=== PATIENT | male | born 1950 | race Caucasian/White ===

== ENCOUNTER 2018-12-07 19:22 | Inpatient (IN) | payer MEDICARE, OTHER ==
[~2018-12-07] VITALS: Ht 182.9 cm; Wt 120.7 kg
[2018-12-07] MEDS ORDERED: LIPITOR20 MG PO (19:27)
[2018-12-07] MEDS ORDERED: CENTRUM COMPLE1 EACH PO (19:27)
[2018-12-07] MEDS ORDERED: ZYLOPRIM300 MG PO (19:27)
[2018-12-07] MEDS ORDERED: COZAAR50 MG PO (19:28)
[2018-12-07] MEDS ORDERED: FUROSEMIDE40 MG PO (19:28)
[2018-12-07] MEDS ORDERED: K-TAB10 MEQ PO (19:28)
[2018-12-07] MEDS ORDERED: BAYER CHEWABLE81 MG PO (19:28)
[2018-12-07] MEDS ORDERED: NEO-BACIT-POLY3.5 G1 EACH EYE (19:29)
[2018-12-07] MEDS ORDERED: CLARITIN 10 MG10 MG PO (19:29)
[2018-12-07] MEDS ORDERED: FLUTICASONE PRO16 GM NASAL (19:29)
[2018-12-07 20:29] LABS: ALBUMIN 3.4 g/dL (3.4-5.0); ALKALINE PHOSPHATASE 291 U/L (46-116); ALT (SGPT) 189 U/L (10-68); BILIRUBIN - TOTAL 6.13 mg/dL (0.2-1.3); CALC OSMOLALITY 282 mosm/kg (275-300); CALCIUM 8.9 mg/dL (8.5-10.1); CARBON DIOXIDE 24.6 mmol/L (21.0-32.0); CHLORIDE - SERUM 98 mmol/L (98-107); CREATININE - SERUM 2.2 mg/dL (0.6-1.3); GLUCOSE 208 mg/dL (74-106); POTASSIUM - SERUM 3.8 mmol/L (3.5-5.1); PROTEIN - SERUM 6.3 g/dL (6.4-8.2); SODIUM 135 mmol/L (136-145); UREA NITROGEN 32 mg/dL (7-18); eGFR NON AFRICAN AMERICAN 32 mL/min (90-120)
[2018-12-07 20:39] VITALS: BP 112/52
[2018-12-07 20:41] LABS: AMYLASE - SERUM 25 U/L (25-115); CKMB 0.2 U/L (0.0-3.6); CREATINE KINASE 154 UL (21-232); LIPASE 114 U/L (73-393); TROPONIN-I 0.045 ng/mL (0.000-0.060)
[2018-12-07 21:03] LABS: APTT 32.5 SECONDS (22.8-39.4); INR 1.22 (0.85-1.17); PROTIME 14.9 SECONDS (11.6-15.0)
[2018-12-07 21:04] LABS: BASOPHILS 0 % (0-2); EOSINOPHILS 0 % (0-7); HEMATOCRIT 41.9 % (42.0-54.0); HEMOGLOBIN 13.6 g/dL (13.5-17.5); IMMATURE GRANULOCYTES 0.9 % (0-5); LYMPHOCYTES 9.5 % (15-50); MCH 28.8 pg (26.0-34.0); MCHC 32.5 g/dL (31.0-37.0); MCV 88.8 fL (80.0-100.0); MEAN PLATELET VOLUME 10.2 fL (7.4-10.4); NEUTROPHILS 78.6 % (40-80); PLATELET COUNT 91 10x3/uL (130-400); RBC 4.72 10x6/uL (4.20-6.10); RDW 16.5 % (11.5-14.5); WBC 3.3 10x3/uL (4.8-10.8)
[2018-12-07 21:11] LABS: D-DIMER-QUANTITATIVE 8.27 ug/mLFEU (0.20-0.54)
[2018-12-07 21:16] LABS: PLATELET ESTIMATE DECREASED
--- NOTE | 2018-12-07 21:38 | NUR ---
PT LEFT ED VIA STRETCHER FOR CT.
--- NOTE | 2018-12-07 21:47 | NUR ---
PT RETURNED FROM CT VIA STRETCHER.
--- NOTE | 2018-12-07 22:30 | NUR ---
PT SLEEPING ON BED. PT FAMILY AT BEDSIDE.
[2018-12-07 22:50] VITALS: BP 130/73
--- NOTE | 2018-12-07 23:26 | NUR ---
URINE SPECIMEN SENT TO LAB
[2018-12-07 23:44] LABS: APPEARANCE HAZY (CLEAR); BILIRUBIN 2+ (NEGATIVE); COLOR DK YELLOW (YELLOW); GLUCOSE NEGATIVE (NEGATIVE); KETONE NEGATIVE (NEGATIVE); NITRITE NEGATIVE (NEGATIVE); PROTEIN 1+ mg/dL (NEGATIVE); SPECIFIC GRAVITY 1.015 (1.005-1.020)
[2018-12-07 23:46] LABS: EPITHELIAL CELLS 0-5 /hpf (0-5); RED CELLS - URINE 0-5 /hpf (0-5); WHITE CELLS - URINE 0-5 /hpf (NEGATIVE)
[2018-12-07 23:47] LABS: AMORPHOUS SEDIMENT <1+ /lpf (NONE SEEN); BACTERIA FEW /hpf (NEGATIVE)
[2018-12-08] VITALS (22 sets, daily range): BP systolic 84–124; BP diastolic 49–60; Ht 182.9 cm; Wt 120.7 kg
--- NOTE | 2018-12-08 00:20 | NUR ---
PT RECIEVED FROM ER, REPORT RECIEVED. PT AAOX4, HARD OF HEARING. TEMP 102.8 ORALLY, PT ON 7L O2 VIA NC, 20G PIV IN LEFT AC. WILL CONTINUE TO MONITOR.
--- NOTE | 2018-12-08 00:50 | NUR ---
ER SPOKE WITH PYSICIANS REGARDING CONSULTS.
--- NOTE | 2018-12-08 01:32 | NUR ---
PT TEMP 102.7 ORALLY, ICE PACKS PLACED AXILLARY AND ON GROIN.
--- NOTE | 2018-12-08 03:24 | NUR ---
PT'S BP DROPPING TO MID 80'S SYSTOLIC, ANDREY SMITH PAGED, UPDATED ON STATUS, NEW ORDERS RECIEVED.
[2018-12-08 04:28] LABS: BASOPHILS 0.1 % (0-2); EOSINOPHILS 0 % (0-7); HEMATOCRIT 35.5 % (42.0-54.0); HEMOGLOBIN 11.4 g/dL (13.5-17.5); IMMATURE GRANULOCYTES 1.3 % (0-5); LYMPHOCYTES 5.4 % (15-50); MCH 28.6 pg (26.0-34.0); MCHC 32.1 g/dL (31.0-37.0); MCV 89.2 fL (80.0-100.0); MEAN PLATELET VOLUME 10.8 fL (7.4-10.4); MONOCYTES 12.4 % (2-11); NEUTROPHILS 80.8 % (40-80); PLATELET COUNT 73 10x3/uL (130-400); RBC 3.98 10x6/uL (4.20-6.10); RDW 16.7 % (11.5-14.5)
[2018-12-08 04:41] LABS: WBC 10.3 10x3/uL (4.8-10.8)
--- NOTE | 2018-12-08 05:00 | NUR ---
PIV INITIATED IN LEFT HAND. PT AAOX4, TEMP DOWN TO 98.6, DENIES PAIN, N&V. WILL CONTINUE TO MONITOR.
[2018-12-08 05:04] LABS: ALBUMIN 2.6 g/dL (3.4-5.0); ANION GAP 17.1 mmol/L (8-16); BILIRUBIN - TOTAL 6.47 mg/dL (0.2-1.3); CALCIUM 8.3 mg/dL (8.5-10.1); CARBON DIOXIDE 22.7 mmol/L (21.0-32.0); MAGNESIUM - SERUM 1.4 mg/dL (1.8-2.4); PHOSPHOROUS 2.6 mg/dL (2.5-4.9); POTASSIUM - SERUM 3.8 mmol/L (3.5-5.1); PROTEIN - SERUM 5.5 g/dL (6.4-8.2)
[2018-12-08 05:12] LABS: CREATININE - SERUM 2.8 mg/dL (0.6-1.3)
[2018-12-08 05:13] LABS: TROPONIN-I 0.275 ng/mL (0.000-0.060)
--- NOTE | 2018-12-08 05:56 | NUR ---
PAGED ANDREY ZARATE APN REGARDING TROPONIN OF 0.275, UPDATED ON STATUS, NEW ORDERS RECIEVED.
--- NOTE | 2018-12-08 07:15 | NUR ---
REPORT RECEVIED. ASSESSMENT COMPLETE PER FLOW SHEET. VSS. NO NEW CHANGE PT DENIES NEEDS WILL CONTINUE TO MONITOR
--- NOTE | 2018-12-08 07:30 | NUR ---
PT TO MRI AT THIS TIME. VSS.
--- NOTE | 2018-12-08 09:20 | NUR ---
FAMILY AT BEDSIDE, UPDATE GIVEN, WILL CON'T TO MONITOR
--- NOTE | 2018-12-08 11:15 | NUR ---
REASSESSMENT COMPLETE, NO CHANGES NOTED, WILL CON'T TO MONITOR
[2018-12-08 12:16] LABS: CKMB 1.8 U/L (0.0-3.6); CREATINE KINASE 734 UL (21-232); TROPONIN-I 0.116 ng/mL (0.000-0.060)
--- NOTE | 2018-12-08 13:15 | NUR ---
PT RESTING COMFORTABLY AT THIS TIME, NO NEEDS NOTED, VSS, CALL LIGHT IN REACH
--- NOTE | 2018-12-08 15:12 | NUR ---
KIDNEY US IN PROGRESS AT THIS TIME, PT TOLERATING WELL
--- NOTE | 2018-12-08 18:59 | MORECARE ---
CASE MANAGEMENT DISCHARGE SUMMARY PATIENT: ROSA ELENA CALIX UNIT: [id number] ADM DATE: 12/07/18 AGE: 68 : 51 SEX: M ROOM/BED: D.2307 AUTHOR: AYANNA MERLOS PHYSICIAN: REFERRING PHYSICIAN: NNEKA CORTEZ MD DATE OF SERVICE: 12/08/18 Discharge Plan Patient Name: ROSA ELENA CALIX Facility: [facility]:[place] : 1950 Planned Disposition: Home Anticipated Discharge Date: Discharge Date: Expected LOS: Initial Reviewer: [email or web address] Initial Review Date: 12/08/2018 Generated: 12/08/18 7:58 pm Comments DCP- Discharge Planning Updated by [email or web address]: Jenny Kemp on 12/08/18 5:[address] Patient Name: ROSA ELENA CALIX Admission Status: ER Accout number: [id number] Admission Date: 12-07-2018 : 1950 Admission Diagnosis: Attending: NNEKA CORTEZ Current LOS: 1 Anticipated DC Date: Planned Disposition: Home Primary Insurance: MEDICARE A & B Discharge Planning Comments: CM met with patient at bedside after explaining CM role and obtaining verbal consent. Patient lives at home with his Gayatri where he is independent with his care and plans to return there upon discharge. Patient feels this would be a safe discharge. CM discussed availability / needs of home health and medical equipment. Patient denies any discharge needs at this time. Patient states he will have his family drive him home upon discharge. CM will continue to follow and assist as needed with discharge planning / needs. Multifold Operator: Jenny Kemp DCPIA - Discharge Planning Initial Assessment Updated by [id number]: Jenny Kemp on 12/08/18 6:54 pm * Is the patient Alert and Oriented? Yes * How many steps to enter\exit or inside your home? * PCP RICHTER * Pharmacy [facility] * Preadmission Environment Home with Family * ADLs Independent * Equipment None * List name and contact numbers for known caregivers / representatives who currently or will assist patient after discharge: GAYATRI CALIX - - [phone] * Verbal permission to speak to the caregivers and representatives has been obtained from the patient. N/A * Community resources currently utilized None * Additional services required to return to the preadmission environment? No * Can the patient safely return to the preadmission environment? Yes * Has this patient been hospitalized within the prior 30 days at any hospital? No Patient Name: ROSA ELENA CALIX Page 33099 at 1859 All edits/amendments must be made on the electronic document DICTATION DATE: 12/08/181857 IC ENGINEER: KELI 12/08/181857 RPT#: [id number] DC DATE: STATUS: ADM IN [facility] [address] [place] [address] END OF REPORT
--- NOTE | 2018-12-08 19:00 | NUR ---
REPORT RECEIVED AT BEDSIDE, INITIAL SHIFT ASSESSMENT COMPLETE PER FLOW SHEET, PT AAOx4 DENIES PAIN OR NEEDS AT THIS TIME, LEFT HAND 20g PIV PATENT C/D/I, LEFT AC 20g PIV SL, NSR ON CM OTHER VSS, WILL CONTINUE TO MONITOR
--- NOTE | 2018-12-08 20:00 | NUR ---
PT ASSISTED TO BEDSIDE COMMODE WITH MINIMAL ASSIST, SEMISOLID BM NOTED, PT ASSISTED BACK IN BED FOR COMFORT, BED ALARM ON AND FUNCTIONING, CALL LIGHT IN REACH, WILL CONTINUE TO MONITOR
--- NOTE | 2018-12-08 21:00 | NUR ---
MEDS GIVEN PER MAR/ORDERS, PT TOLLERATED WELL, NO S/S OF ACUTE DISTRESS, AT BEDSIDE, VSS, WILL CONTINUE TO MONITOR
[2018-12-09] VITALS (19 sets, daily range): BP systolic 94–151; BP diastolic 58–75
--- NOTE | 2018-12-09 | NUR ---
ASSISTED PT TO BEDSIDE COMMODE, SMALL SEMIFORMED BM NOTED, PT REPOSITIONED BACK IN BED FOR COMFORT, LINES REPOSITIONED, HOB ELEVATED, VSS, WILL CONTINUE TO MONITOR
[2018-12-09 04:10] LABS: BASOPHILS 0.1 % (0-2); EOSINOPHILS 0 % (0-7); HEMATOCRIT 34.3 % (42.0-54.0); HEMOGLOBIN 11.2 g/dL (13.5-17.5); IMMATURE GRANULOCYTES 0.4 % (0-5); LYMPHOCYTES 5.6 % (15-50); MCH 28.7 pg (26.0-34.0); MCHC 32.7 g/dL (31.0-37.0); MCV 87.9 fL (80.0-100.0); MEAN PLATELET VOLUME 11.6 fL (7.4-10.4); MONOCYTES 14.4 % (2-11); NEUTROPHILS 79.5 % (40-80); PLATELET COUNT 73 10x3/uL (130-400); RDW 17.2 % (11.5-14.5); WBC 9.7 10x3/uL (4.8-10.8)
[2018-12-09 04:13] LABS: ANION GAP 16.6 mmol/L (8-16); CALCIUM 8.2 mg/dL (8.5-10.1); CARBON DIOXIDE 22.4 mmol/L (21.0-32.0); MAGNESIUM - SERUM 1.7 mg/dL (1.8-2.4); PHOSPHOROUS 2.2 mg/dL (2.5-4.9)
[2018-12-09 04:40] LABS: PLATELET ESTIMATE DECREASED
--- NOTE | 2018-12-09 05:30 | NUR ---
ALL NEEDED CONSENTS SIGNED BY PT AND IN CHART, AT BEDSIDE AT TIME CONSENTS SIGNED, NO QUESTIONS OR CONCERNS NOTED AT THIS TIME
--- NOTE | 2018-12-09 06:00 | NUR ---
CHG BATH WITH COMPLETE LINEN AND GOWN CHANGE, PT ASSISTED WITH BATH, MALIN CATH CARE COMPLETED, MALIN CATH STAT-LOCK REPLACED AND REPOSITIONED, NO ACUTE S/S OF DISTRESS NOTED, VSS, WILL CONTINUE TO MONITOR
--- NOTE | 2018-12-09 07:15 | NUR ---
REPORT RECEIVED. ASSESSMENT COMPLETE PER FLOW SHEET. VSS. PT RESTING COMFORTABLY WILL CONTINUE TO MONITOR
[2018-12-09 08:41] LABS: BILIRUBIN - TOTAL 5.03 mg/dL (0.2-1.3)
--- NOTE | 2018-12-09 10:50 | NUR ---
REASSESSMENT COMPLETE PER FLOW SHEET. VSS. OR AT BEDSIDE PT LEFT VIA BED.
--- NOTE | 2018-12-09 14:10 | NUR ---
PT BACK FROM OR AT THIS TIME. FAMILY NOTIFIED AT BEDSIDE. DR LEZAMA AT BEDSIDE. NEW ORDERS RECIEVED. ADM. PT RESTING COMFORTABLY WILL CONTINUE TO MONITOR VSS
--- NOTE | 2018-12-09 15:00 | NUR ---
REASSESSMENT COMPLETE PER FLOW SHEET. VSS. NO NEW CHANGES PT RESTING COMFORTABLY WILL CONTINUE TO MONITOR
--- NOTE | 2018-12-09 19:00 | NUR ---
REPORT RECEIVED AT BEDSIDE, SHIFT ASSESSMENT COMPLETE SEE FLOW SHEET FOR FURTHER, PT AAOx4 DENIES PAIN OR NEEDS AT THIS TIME, REPOSITIONES SELF WITHOUT ASSIST, ABDOMENAL INCISION x4 C/D/I, MALIN CATH TO GRAVITY SECURED TO LEFT UPPER THIGH WITH STAT-LOCK, LEFT HAND 20g PIV PATENT C/D/I, LEFT AC 20g PIV SL, HOB ELEVATED, VSS, NSR ON CM, WILL CONTINUE TO MONITOR
--- NOTE | 2018-12-09 21:00 | NUR ---
MEDS GIVEN PER MAR/ORDERS, PT AWAKE AND ALERT, DENIES PAIN, AND SON AT BEDSIDE, VSS
--- NOTE | 2018-12-09 23:00 | NUR ---
REASSESSMENT COMPLETE SEE FLOW SHEET, NO ACUTE CHANGES SINCE PRIOR ASSESSMENT, REPOSITIONED FOR COMFORT, VSS, NSR ON CM, PT DENIES PAIN OR NEEDS AT THIS TIME, WILL CONTINUE TO MONITOR
[2018-12-10] VITALS (9 sets, daily range): BP systolic 111–148; BP diastolic 67–83
--- NOTE | 2018-12-10 03:00 | NUR ---
REASSESSMENT COMPLETE SEE FLOW SHEET, PT AWAKE AND ALERT, DENIES PAIN OR NEEDS AT THIS TIME, REPOSITIONES SELF FREQUENTLY, VSS, NSR ON CM, WILL CONTINUE TO MONITOR
--- NOTE | 2018-12-10 04:30 | NUR ---
FiO2% INCREASED TO 60% BY NAZIA RT D/T ABG RESULTS
[2018-12-10 04:40] LABS: BASOPHILS 0.3 % (0-2); EOSINOPHILS 0.1 % (0-7); HEMATOCRIT 33.7 % (42.0-54.0); HEMOGLOBIN 10.8 g/dL (13.5-17.5); IMMATURE GRANULOCYTES 1.7 % (0-5); LYMPHOCYTES 4.8 % (15-50); MONOCYTES 8.3 % (2-11); NEUTROPHILS 84.8 % (40-80); RBC 3.72 10x6/uL (4.20-6.10); RDW 17.6 % (11.5-14.5); WBC 8.6 10x3/uL (4.8-10.8)
[2018-12-10 05:00] LABS: ALBUMIN 2.3 g/dL (3.4-5.0); ANION GAP 12.3 mmol/L (8-16); BILIRUBIN - DIRECT 1.58 mg/dL (0.00-0.30); BILIRUBIN - INDIRECT 0.93 mg/dL (0.00-1.00); BILIRUBIN - TOTAL 2.51 mg/dL (0.2-1.3); CALCIUM 7.7 mg/dL (8.5-10.1); CARBON DIOXIDE 24.7 mmol/L (21.0-32.0); PHOSPHOROUS 2.5 mg/dL (2.5-4.9); PROTEIN - SERUM 5.4 g/dL (6.4-8.2)
[2018-12-10 05:04] LABS: CREATININE - SERUM 1.4 mg/dL (0.6-1.3); MAGNESIUM - SERUM 2.5 mg/dL (1.8-2.4)
[2018-12-10 05:16] LABS: MCV 90.6 fL (80.0-100.0); PLATELET COUNT 122 10x3/uL (130-400)
--- NOTE | 2018-12-10 07:15 | NUR ---
REPORT RECEIVED. ASSESSMENT COMPLETE PER FLOW SHEET. VSS. PT ERSTING COMFORTABLY WILL CONTINUET OMONITOR
--- NOTE | 2018-12-10 09:20 | NUR ---
DR LEZAMA AT BEDSIDE. GIVEN UDPATE. NEW ORDERS RECEIVED. MALIN D.C.'D BALLOON INTACT, PT AMBULATED TWO LAPS AROUND UNIT. VSS WILL CONTINUE TO MONITOR
--- NOTE | 2018-12-10 10:23 | NUR ---
REPORT CALLED TO [facility] FOR ROOM 2229. PT MOVED VIA WHEELCHAIR
--- NOTE | 2018-12-10 10:42 | NUR ---
RECEIVED TO ROOM 2229 VIA WC FROM ICU. A/O X3. FAMILY AT BEDSIDE. SKIN INTACT WITHOUT REDNESS EXCEPT 4 INSERTION SITES TO ABDOMEN WHICH ARE CLEARN DRY AND WELL APPROXIMATED.
--- NOTE | 2018-12-10 13:30 | EC ---
PATIENT:ROSA ELENA CALIX DATE OF SERVICE: 12/07/18 SEX: M MEDICAL RECORD: [id number] DATE OF : [birth year] LOCATION:D.MS [address] AGE OF PATIENT: 68 ADMISSION DATE: 12/07/18 REFERRING PHYSICIAN: INTERPRETING PHYSICIAN: KAREN FERNANDEZ MD ECHOCARDIOGRAM REPORT ECHO CHARGES 4 ECHO COMPLETE Date: 12/08/18 CLINICAL DIAGNOSIS: SEPSIS, H/O:CHF, HYPOTENSION, TACHYCARDIA ECHOCARDIOGRAPHIC MEASUREMENTS (adult normal given) AC root (d.<3.7cm) 3.3 cm LV Septum d (<1.2 cm> 0.9 cm Valve Excursion 1.9 cm LV Septum (systole) 1.2 cm Left Atria (s.<4.0cm> 3.3 cm LVPW d(<1.2cm) 0.9 cm RV (d.<2.3cm) 3.1 cm LVPW (sytole) 1.2 cm LV diastole(<5.6CM) 6.3 cm MV E-F(>70mm/sec) cm LV systole 5.1 cm LVOT Diameter 1.9 cm MV exc.(>10mm) cm Est.ejection fraction (50-75%) % DOPPLER: LVIT cm/sec A 83 cm/sec E 89 cm/sec LA cm/sec RVSP 31.4 mmHg LVOT 82 cm/sec AOP1/2T m/s Asc. Ao 121 cm/sec RVOT 74 cm/sec RA cm/sec PA 87 cm/sec AV Gradient Peak 5.9 mmHg AV Mean 3.6 mmHg AV Area 1.7 cm MV Gradient Peak 3.6 mmHg MV Mean 1.7 mmHg MV Area cm COMMENTS: Delivery Mgr: Alida VILLEGAS Vegetable Inspector: 2 Dr. Hook TAPE# PACS Pericardial Effusion N DATE OF SERVICE: PROCEDURE: Echocardiogram FINDINGS: 1. Left ventricular chamber size is mildly dilated. Left ventricular systolic function is preserved at 50% to 55%. 2. Left atrium is within normal limits. Right atrium and right ventricular chamber sizes are mildly dilated. 3. Valvular structures have normal structure and motion. ECHOCARDIOGRAM REPORT [id number] ROSA ELENA CALIX 4. Doppler interrogation reveals mild mitral regurgitation, mild tricuspid regurgitation, no other valvular insufficiency or stenosis. Pulmonary systolic pressure is estimated at 31 mmHg. 5. No evidence of pericardial effusion or left ventricular thrombus. TRANSINT:[id number] Voice Confirmation ID: [id number] DOCUMENT ID: [id number] KAREN FERNANDEZ MD at 1330 CC: [id number] DICTATION DATE: 12/08/18 1214 STORM DOOR MAKER: 12/08/18 1356 ADM IN [facility] [address] [place] [address]
--- NOTE | 2018-12-10 14:29 | NUR ---
NUTRITION F/U PT TRANSFERED TO FLOOR. REGULAR DIET STARTED AT LUNCH TODAY. WILL HONOR FOOD PREFERENCES, MONITOR PO INTAKE. RD FOLLOWING
--- NOTE | 2018-12-10 15:30 | NUR ---
AMBULATED IN HALLWAY WITH 250 FEET WITHOUT DIFFICULTY. DENIES NEEDS.
--- NOTE | 2018-12-10 16:45 | NUR ---
RESTING QUIETLY IN BED. O2 WAS OFF. SATS DOWN TO 88%. O2 REPLACED AND SATS UP TO 95%. AT BEDSIDE. DENIES NEEDS.
--- NOTE | 2018-12-10 18:46 | NUR ---
ATE ABOUT 30% OF MEAL. REPORTED HE DOESN'T EAT BEEF OR PORK. WILL MONITOR. NO CHANGES NOTED. DENIES NEEDS. FAMILY AT BEDSIDE.
--- NOTE | 2018-12-10 19:34 | NUR ---
UP IN BED WITH FAMILY AT BEDSIDE. ABLE TO VOICE NEEDS. IV TO LEFT HAND INFUSING PER ORDERS, 02 AT 2.5 LITERS VIA NC ON, SHOWS NO S/S OF ANY ACUTE DISTRESS. WILL NOTE ANY CHANGE.
--- NOTE | 2018-12-11 02:34 | NUR ---
I have reviewed this patient and I concur with the Shift Assessment completed by the Licensed Practical Nurse today this shift.
[2018-12-11 05:28] LABS: BASOPHILS 0 % (0-2); EOSINOPHILS 0 % (0-7); IMMATURE GRANULOCYTES 0.6 % (0-5); LYMPHOCYTES 11.6 % (15-50); MCH 28.4 pg (26.0-34.0); MCHC 31.3 g/dL (31.0-37.0); MCV 90.9 fL (80.0-100.0); MEAN PLATELET VOLUME 11.1 fL (7.4-10.4); MONOCYTES 10.7 % (2-11); NEUTROPHILS 77.1 % (40-80); PLATELET COUNT 109 10x3/uL (130-400); RBC 3.52 10x6/uL (4.20-6.10); RDW 17.5 % (11.5-14.5)
[2018-12-11 05:29] VITALS: BP 132/75
[2018-12-11 05:41] LABS: WBC 6.2 10x3/uL (4.8-10.8)
[2018-12-11 05:45] LABS: ALBUMIN 2.3 g/dL (3.4-5.0); ANION GAP 10.9 mmol/L (8-16); BILIRUBIN - DIRECT 1.07 mg/dL (0.00-0.30); BILIRUBIN - INDIRECT 0.64 mg/dL (0.00-1.00); BILIRUBIN - TOTAL 1.71 mg/dL (0.2-1.3); CARBON DIOXIDE 26.5 mmol/L (21.0-32.0); CREATININE - SERUM 1.3 mg/dL (0.6-1.3); MAGNESIUM - SERUM 2.1 mg/dL (1.8-2.4); PHOSPHOROUS 2.3 mg/dL (2.5-4.9); POTASSIUM - SERUM 4.4 mmol/L (3.5-5.1); PROTEIN - SERUM 5.3 g/dL (6.4-8.2)
--- NOTE | 2018-12-11 06:33 | NUR ---
RESTED FAIR THIS SHIFT, HAD SOME TIMES OF SOB UPON EXERTION, WHEN HE WOULD REST HE WOULD CATCH BACK UP, 02 ON AT 2.5 LITERS VIA NC. DENIES ANY PAIN AT THIS TIME. WILL NOTE ANY CHANGE.
--- NOTE | 2018-12-11 06:45 | NUR ---
RESTING IN BED, EYES OPEN. NO C/O PAIN. NO S/S OF ACUTE DISTRESS NOTED. ALERT AND ORIENTED. ON 2.5L O2, NC. IV TO LEFT HAND, SL. SITE PATENT WITHOUT REDNESS OR SWELLING. TELEMETRY 108 ST. PT DENIES ANY NEEDS AT THIS TIME. CALL LIGHT IN REACH. AT BEDSIDE. WILL CONTINUE TO MONITOR.
[2018-12-11 08:18] VITALS: BP 170/69
[2018-12-11] MEDS ORDERED: HYDROCODON-ACE1 EAC7 PO (08:24)
--- NOTE | 2018-12-11 09:15 | NUR ---
PT C/O URINARY RETENTION. TALKED TO JOSSELYN SANDOVALN, ASKED TO DO BLADDER SCAN. BLADDER SCAN REVEALED 294ML URINE IN BLADDER. NOTIFIED LINOTYPE MACHINIST APPRENTICE OF RESULTS.
[2018-12-11] MEDS ORDERED: FLOMAX0.4 MG PO (12:16)
[2018-12-11] MEDS ORDERED: LEVAQUIN750 MG PO (12:16)
[2018-12-11 12:21] VITALS: BP 143/60
--- NOTE | 2018-12-11 13:54 | MORECARE ---
CASE MANAGEMENT DISCHARGE SUMMARY PATIENT: ROSA ELENA CALIX UNIT: [id number] ADM DATE: 12/07/18 AGE: 68 : 51 SEX: M ROOM/BED: D.2229 AUTHOR: AYANNA MERLOS PHYSICIAN: REFERRING PHYSICIAN: NNEKA CORTEZ MD DATE OF SERVICE: 12/11/18 Discharge Plan Patient Name: ROSA ELENA CALIX Facility: [facility]:[place] : 1950 Planned Disposition: Home Anticipated Discharge Date: Discharge Date: Expected LOS: Initial Reviewer: [email or web address] Initial Review Date: 12/08/2018 Generated: 12/11/18 2:54 pm Comments DCP- Discharge Planning Updated by [id number]: Jenny Kemp on 12/08/18 5:[address] Patient Name: ROSA ELENA CALIX Admission Status: ER Accout number: [id number] Admission Date: 12-07-2018 : 1950 Admission Diagnosis: Attending: NNEKA CORTEZ Current LOS: 1 Anticipated DC Date: Planned Disposition: Home Primary Insurance: MEDICARE A & B Discharge Planning Comments: CM met with patient at bedside after explaining CM role and obtaining verbal consent. Patient lives at home with his Gayatri where he is independent with his care and plans to return there upon discharge. Patient feels this would be a safe discharge. CM discussed availability / needs of home health and medical equipment. Patient denies any discharge needs at this time. Patient states he will have his family drive him home upon discharge. CM will continue to follow and assist as needed with discharge planning / needs. Skate Boarder: Jenny Kemp DCPIA - Discharge Planning Initial Assessment Updated by [id number]: Jenny Kemp on 12/08/18 6:54 pm * Is the patient Alert and Oriented? Yes * How many steps to enter\exit or inside your home? * PCP RICHTER * Pharmacy [facility] * Preadmission Environment Home with Family * ADLs Independent * Equipment None * List name and contact numbers for known caregivers / representatives who currently or will assist patient after discharge: GAYATRI CALIX - - [phone] * Verbal permission to speak to the caregivers and representatives has been obtained from the patient. N/A * Community resources currently utilized None * Additional services required to return to the preadmission environment? No * Can the patient safely return to the preadmission environment? Yes * Has this patient been hospitalized within the prior 30 days at any hospital? No External Providers External Provider: Betzaida Maharaj Contact Date: Service Request Date: Service Type: Resolution: Reviewer: Comments: Last DP export: 12/08/18 5:59 p Patient Name: ROSA ELENA CALIX Page [phone] at 1354 All edits/amendments must be made on the electronic document DICTATION DATE: 12/11/18 1354 PBX MECHANIC: KELI 12/11/18 1354 RPT#: [id number] DC DATE: STATUS: ADM IN [facility] [address] [place] [address] END OF REPORT
--- NOTE | 2018-12-11 14:03 | MORECARE ---
CASE MANAGEMENT DISCHARGE SUMMARY PATIENT: ROSA ELENA CALIX UNIT: [id number] ADM DATE: 12/07/18 AGE: 68 : 52 SEX: M ROOM/BED: D.2229 AUTHOR: AYANNA MERLOS PHYSICIAN: REFERRING PHYSICIAN: NNEKA CORTEZ MD DATE OF SERVICE: 12/11/18 Discharge Plan Patient Name: ROSA ELENA CALIX Facility: [facility]:[place] : 1950 Planned Disposition: Home Anticipated Discharge Date: Discharge Date: Expected LOS: Initial Reviewer: [email or web address] Initial Review Date: 12/08/2018 Generated: 12/11/18 3:03 pm Comments DCP- Discharge Planning Updated by [id number]: Elizabeth Sauceda on 12/11/18 12:[address] Received discharge orders. He is currently wearing oxygen at 2 liters NC. I called RT for a walk test and his oxygen saturation is 87% on room air. I called Mick with [facility] and faxed clinical for home oxygen. He will need to wait until portable oxygen is delivered before discharge home. CM will continue to follow and assist with discharge planning/needs. DCP- Discharge Planning Updated by [email or web address]: Jenny Kemp on 12/08/18 5:[address] Patient Name: ROSA ELENA CALIX Admission Status: ER Accout number: [id number] Admission Date: 12-07-2018 : 1950 Admission Diagnosis: Attending: NNEKA CORTEZ Current LOS: 1 Anticipated DC Date: Planned Disposition: Home Primary Insurance: MEDICARE A & B Discharge Planning Comments: CM met with patient at bedside after explaining CM role and obtaining verbal consent. Patient lives at home with his Gayatri where he is independent with his care and plans to return there upon discharge. Patient feels this would be a safe discharge. CM discussed availability / needs of home health and medical equipment. Patient denies any discharge needs at this time. Patient states he will have his family drive him home upon discharge. CM will continue to follow and assist as needed with discharge planning / needs. Teletypesetter Operator: Jenny Kemp DCPIA - Discharge Planning Initial Assessment Updated by [id number]: Jenny Kemp on 12/08/18 6:54 pm * Is the patient Alert and Oriented? Yes * How many steps to enter\exit or inside your home? * PCP ROBER * Pharmacy [facility] * Preadmission Environment Home with Family * ADLs Independent * Equipment None * List name and contact numbers for known caregivers / representatives who currently or will assist patient after discharge: GAYATRI CALIX - - [phone] * Verbal permission to speak to the caregivers and representatives has been obtained from the patient. N/A * Community resources currently utilized None * Additional services required to return to the preadmission environment? No * Can the patient safely return to the preadmission environment? Yes * Has this patient been hospitalized within the prior 30 days at any hospital? No Coverage Notice Reviewer: [email or web address] Sauceda Notice Issued Date-Time: 12/11/2018 13:30 Notice Type: IM Discharge Notice Notice Delivered To: Patient Relationship to Patient: Self Wire Harness Design Engineer Name: Delivery Method: HAND - Hand Delivered Rut Days: Prior Verbal Notification: Recipient Understood Notice: Yes Recipient Signature: Yes Med Rec Note Co-signed by Attending: Coverage Notice Comment: IMM explained, signed, given, copy placed in MR Reviewer: [email or web address] Sauceda Notice Issued Date-Time: 12/11/2018 13:58 Notice Type: Patient Choice Letter Notice Delivered To: Patient Relationship to Patient: Self Wire Harness Design Engineer Name: Delivery Method: HAND - Hand Delivered Rut Days: Prior Verbal Notification: Recipient Understood Notice: Yes Recipient Signature: Yes Med Rec Note Co-signed by Attending: Coverage Notice Comment: VILLA for [employer] Last DP export: 12/11/18 12:54 Patient Name: ROSA ELENA CALIX Page [phone] at 1403 All edits/amendments must be made on the electronic document DICTATION DATE: 12/11/18 140 INDUSTRIAL RELATIONS DIRECTOR: KELI 12/11/18 1403 RPT#: [id number] DC DATE: STATUS: ADM IN [facility] [address] [place] [address] END OF REPORT
--- NOTE | 2018-12-11 15:16 | MORECARE ---
CASE MANAGEMENT DISCHARGE SUMMARY PATIENT: ROSA ELENA CALIX UNIT: [id number] ADM DATE: 12/07/18 AGE: 68 : 52 SEX: M ROOM/BED: D.2229 AUTHOR: AYANNA MERLOS PHYSICIAN: REFERRING PHYSICIAN: NNEKA CORTEZ MD DATE OF SERVICE: 12/11/18 Discharge Plan Patient Name: ROSA ELENA CALIX Facility: [facility]:[place] : 1950 Planned Disposition: Home Anticipated Discharge Date: Discharge Date: Expected LOS: Initial Reviewer: [email or web address] Initial Review Date: 12/08/2018 Generated: 12/11/18 4:15 pm Comments DCP- Discharge Planning Updated by [id number]: Elizabeth Sauceda on 12/11/18 2:[address] Portable oxygen has been delivered. They have the number to call for home set up when they leave. Declines any other needs. Home today with oxygen set up by [facility]. DCP- Discharge Planning Updated by [email or web address]: Elizabeth Sauceda on 12/11/18 12:[address] Received discharge orders. He is currently wearing oxygen at 2 liters NC. I called RT for a walk test and his oxygen saturation is 87% on room air. I called Mick with [facility] and faxed clinical for home oxygen. He will need to wait until portable oxygen is delivered before discharge home. CM will continue to follow and assist with discharge planning/needs. DCP- Discharge Planning Updated by [id number]: Jenny Kemp on 12/08/18 5:[address] Patient Name: ROSA ELENA CALIX Admission Status: ER Accout number: [id number] Admission Date: 12-07-2018 : 1950 Admission Diagnosis: Attending: NNEKA CORTEZ Current LOS: 1 Anticipated DC Date: Planned Disposition: Home Primary Insurance: MEDICARE A & B Discharge Planning Comments: CM met with patient at bedside after explaining CM role and obtaining verbal consent. Patient lives at home with his Gayatri where he is independent with his care and plans to return there upon discharge. Patient feels this would be a safe discharge. CM discussed availability / needs of home health and medical equipment. Patient denies any discharge needs at this time. Patient states he will have his family drive him home upon discharge. CM will continue to follow and assist as needed with discharge planning / needs. Slab Grinder: Jenny Kemp DCPIA - Discharge Planning Initial Assessment Updated by [id number]: Jenny Kemp on 12/08/18 6:54 pm * Is the patient Alert and Oriented? Yes * How many steps to enter\exit or inside your home? * PCP RICHTER * Pharmacy [facility] * Preadmission Environment Home with Family * ADLs Independent * Equipment None * List name and contact numbers for known caregivers / representatives who currently or will assist patient after discharge: GAYATRI CALIX - - [phone] * Verbal permission to speak to the caregivers and representatives has been obtained from the patient. N/A * Community resources currently utilized None * Additional services required to return to the preadmission environment? No * Can the patient safely return to the preadmission environment? Yes * Has this patient been hospitalized within the prior 30 days at any hospital? No Coverage Notice Reviewer: [id number] Sauceda Notice Issued Date-Time: 12/11/2018 13:30 Notice Type: IM Discharge Notice Notice Delivered To: Patient Relationship to Patient: Self Pharmacy Coordinator Name: Delivery Method: HAND - Hand Delivered Rut Days: Prior Verbal Notification: Recipient Understood Notice: Yes Recipient Signature: Yes Med Rec Note Co-signed by Attending: Coverage Notice Comment: IMM explained, signed, given, copy placed in MR Reviewer: [id number] Sauceda Notice Issued Date-Time: 12/11/2018 13:58 Notice Type: Patient Choice Letter Notice Delivered To: Patient Relationship to Patient: Self Pharmacy Coordinator Name: Delivery Method: HAND - Hand Delivered Rut Days: Prior Verbal Notification: Recipient Understood Notice: Yes Recipient Signature: Yes Med Rec Note Co-signed by Attending: Coverage Notice Comment: VILLA for [employer] DP export: 12/11/18 1:03 Patient Name: ROSA ELENA CALIX Page [id number] at 1516 All edits/amendments must be made on the electronic document DICTATION DATE: 12/11/181514 OYSTER HARVESTER: KELI 12/11/181514 RPT#: [id number] DC DATE: STATUS: ADM IN [facility] [address] [place] [address] END OF REPORT
--- NOTE | 2018-12-11 16:23 | NUR ---
DISCHARGED PATIENT HOME WITH FAMILY VIA WHEELCHAIR. WENT OVER DISCHARGE INSTRUCTIONS WITH PATIENT, DEMONSTRATED HOW TO USE PORTABLE OXYGEN. VERBALIZED UNDERSTANDING. DISCONTINUED IV, CATHETER TIP INTACT. NO C/O PAIN. NO S/S OF ACUTE DISTRESS NOTED. PATIENT DENIES ANYTHING FURTHER.
--- NOTE | 2018-12-11 16:53 | MORECARE ---
CASE MANAGEMENT DISCHARGE SUMMARY PATIENT: ROSA ELENA CALIX UNIT: [id number] ADM DATE: 12/07/18 AGE: 68 : 52 SEX: M ROOM/BED: D.2229 AUTHOR: AYANNA MERLOS PHYSICIAN: REFERRING PHYSICIAN: NNEKA CORTEZ MD DATE OF SERVICE: 12/11/18 Discharge Plan Patient Name: ROSA ELENA CALIX Facility: [facility]:[place] : 1950 Planned Disposition: Home Anticipated Discharge Date: Discharge Date: 12/11/2018 Expected LOS: 0 Initial Reviewer: [email or web address] Initial Review Date: 12/08/2018 Generated: 12/11/18 5:52 pm Comments DCP- Discharge Planning Updated by [email or web address]: Elizabeth Sauceda on 12/11/18 2:[address] Portable oxygen has been delivered. They have the number to call for home set up when they leave. Declines any other needs. Home today with oxygen set up by [facility]. DCP- Discharge Planning Updated by [email or web address]: Elizabeth Sauceda on 12/11/18 12:[address] Received discharge orders. He is currently wearing oxygen at 2 liters NC. I called RT for a walk test and his oxygen saturation is 87% on room air. I called Mick with [facility] and faxed clinical for home oxygen. He will need to wait until portable oxygen is delivered before discharge home. CM will continue to follow and assist with discharge planning/needs. DCP- Discharge Planning Updated by [email or web address]: Jenny Kemp on 12/08/18 5:[address] Patient Name: ROSA ELENA CALIX Admission Status: ER Accout number: [id number] Admission Date: 12-07-2018 : 1950 Admission Diagnosis: Attending: NNEKA CORTEZ Current LOS: 1 Anticipated DC Date: Planned Disposition: Home Primary Insurance: MEDICARE A & B Discharge Planning Comments: CM met with patient at bedside after explaining CM role and obtaining verbal consent. Patient lives at home with his Gayatri where he is independent with his care and plans to return there upon discharge. Patient feels this would be a safe discharge. CM discussed availability / needs of home health and medical equipment. Patient denies any discharge needs at this time. Patient states he will have his family drive him home upon discharge. CM will continue to follow and assist as needed with discharge planning / needs. Facility Attendant: Jenny Kemp MARSHALL - Discharge Planning Initial Assessment Updated by [email or web address]: Jenny Kemp on 12/08/18 6:54 pm * Is the patient Alert and Oriented? Yes * How many steps to enter\exit or inside your home? * PCP RICHTER * Pharmacy [facility] * Preadmission Environment Home with Family * ADLs Independent * Equipment None * List name and contact numbers for known caregivers / representatives who currently or will assist patient after discharge: GAYATRI CALIX - - [phone] * Verbal permission to speak to the caregivers and representatives has been obtained from the patient. N/A * Community resources currently utilized None * Additional services required to return to the preadmission environment? No * Can the patient safely return to the preadmission environment? Yes * Has this patient been hospitalized within the prior 30 days at any hospital? 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
== END 2018-12-11 16:25 | disposition home or self-care (01) | DRG 853 ==
LOC: D.ER 19:22 → D.MS 23:14 → D.ICU 23:14 → D.MS 12-10 10:24
PROVIDERS: Family Medicine; Surgery; ADMIT Internal Medicine Nephrology; ATTEND Internal Medicine Nephrology
PROC: BF141ZZ Fluoroscopy of Gallbladder, Bile Ducts and Pancreatic Ducts using Low Osmolar Contrast (ICD-10-PCS; 2018-12-09)
PROC: 0FT44ZZ Resection of Gallbladder, Percutaneous Endoscopic Approach (ICD-10-PCS; principal; 2018-12-09 11:15)
DX: A41.9 Sepsis, unspecified organism (principal); J18.9 Pneumonia, unspecified organism; R65.21 Severe sepsis with septic shock; J96.01 Acute respiratory failure with hypoxia; K81.0 Acute cholecystitis; N17.9 Acute kidney failure, unspecified; N39.0 Urinary tract infection, site not specified; K83.09 Other cholangitis; E87.1 Hypo-osmolality and hyponatremia; R17 Unspecified jaundice; I11.0 Hypertensive heart disease with heart failure; I50.9 Heart failure, unspecified; E78.5 Hyperlipidemia, unspecified